=== PATIENT | female | born 1945 | race Caucasian/White ===

== ENCOUNTER 2017-02-10 02:22 | Emergency (ER) | payer MEDICARE ==
[2017-02-10 04:30] LABS: HEMOGLOBIN 13.3 gm/dl (12.3-15.3); RED BLOOD COUNT 4.46 M/UL (4.00-5.10); WHITE BLOOD COUNT 6.3 K/UL (4.5-11.0)
[2017-02-10 04:52] LABS: BUN/CREATININE RATIO 30 (0-10)
[2017-07-09] MEDS ORDERED: KLOR-CON M2020 MEQ PO (16:48)
[2017-07-09] MEDS ORDERED: NITRO-DUR 0.4 MG1 EA SL (16:51)
[2017-07-09] MEDS ORDERED: LIPITOR TAB 2020 MG PO (16:53)
[2017-07-09] MEDS ORDERED: LORTAB 5-325 M1 EACH PO (16:53)
[2017-07-09] MEDS ORDERED: METFORMIN HCL500 MG PO (16:54)
[2017-07-09] MEDS ORDERED: GLUCOTROL5 MG PO (16:54)
[2017-07-09] MEDS ORDERED: METOPROLOL SUC100 MG PO (16:55)
[2017-07-09] MEDS ORDERED: PLAVIX 75 MG TA75 MG PO (16:56)
[2017-07-09] MEDS ORDERED: LASIX40 MG PO (16:56)
[2017-07-09] MEDS ORDERED: IMDUR ER TAB 6060 MG PO (16:57)
[2017-07-09] MEDS ORDERED: ASPIR 8181 MG PO (16:57)
[2017-07-09] MEDS ORDERED: SYNTHROID125 MCG PO (16:58)
[2017-07-09] MEDS ORDERED: VITAMIN D31000 UNIT PO (16:58)
[2017-07-09] MEDS ORDERED: AMOXICILLIN875 MG PO (16:59)
[2017-07-09] MEDS ORDERED: NITROSTAT 0.4100 TAB SL (19:15)
[2017-07-09] MEDS ORDERED: Entresto PO (19:22)
== END 2017-02-10 06:59 | disposition home or self-care (01) ==
LOC: ER1 02:22
PROVIDERS: Physician Assistant
DX: I50.9 Heart failure, unspecified (principal); R06.01 Orthopnea; E11.9 Type 2 diabetes mellitus without complications; I10 Essential (primary) hypertension
CPT/HCPCS: 36415; 71010; 80053; 82550; 82553; 83874; 83880; 84484; 85025; 93005; 96374; 99285; J1940